=== PATIENT | male | born 1950 | race African-American/Black ===

== ENCOUNTER 2019-01-31 13:03 | Emergency (ER) | payer MEDICARE ==
[~2019-01-31] VITALS: Ht 167.6 cm; Wt 74.0 kg
[2019-01-31] MEDS ORDERED: HYDR25TA PO (13:12)
[2019-01-31] MEDS ORDERED: LISI40TA4 PO (13:12)
[2019-01-31 14:50] VITALS: BP 150/60
== END 2019-01-31 14:54 | disposition home or self-care (01) ==
LOC: ER 13:03
DX: H61.23 Impacted cerumen, bilateral (principal); I10 Essential (primary) hypertension; Z98.890 Other specified postprocedural states; Z79.899 Other long term (current) drug therapy
CPT/HCPCS: 69209; 99283

== ENCOUNTER 2020-07-18 12:51 | Emergency (ER) | payer MEDICARE, MEDICAID ==
[~2020-07-18] VITALS: Ht 167.6 cm; Wt 72.0 kg
[~2020-07-18 12:51] MED LIST: HYDR25TA PO; LISI40TA4 PO
[2020-07-18 15:15] VITALS: BP 135/78
== END 2020-07-18 15:16 | disposition home or self-care (01) ==
LOC: ER 13:03
DX: H10.9 Unspecified conjunctivitis (principal); I10 Essential (primary) hypertension
CPT/HCPCS: 99281